=== PATIENT | female | born 2005 | race Caucasian/White ===

== ENCOUNTER 2025-02-13 11:28 | Outpatient (CLI) | payer OTHER | END 2025-02-13 11:29 | disposition home or self-care (01) | LOC: CSHULT 11:28 | PROVIDERS: ATTEND Family Medicine | DX: Z34.02 Encounter for supervision of normal first pregnancy, second trimester (principal); Z3A.26 26 weeks gestation of pregnancy | CPT/HCPCS: 76805 ==